=== PATIENT | male | born 1945 | race African-American/Black ===

== ENCOUNTER 2022-12-15 15:57 | Emergency (ER) | payer OTHER ==
[~2022-12-15] VITALS: Ht 188 cm; Wt 77.2 kg
[2022-12-15] MEDS ORDERED: ACETAMINOPHEN 325 MG TAB PO ONE (17:00)
[2022-12-15 18:17] LABS: Basophils # (auto) 0 10 ^3/uL (0-0.2); Basophils % (auto) 0.4 % (0.0-2.0); Eosinophils # (auto) 0.2 10 ^3/uL (0-0.8); Eosinophils % (auto) 2.4 % (0.0-7.0); Hematocrit 39.3 % (41.0-53.0); Hemoglobin 13.3 g/dL (13.5-17.5); Lymphocytes # (auto) 1.7 10 ^3/uL (0.4-5.4); Mean Corpuscular Hemoglobin 29.9 pg (28.0-32.0); Mean Corpuscular Hgb Conc. 33.7 g/dL (32.0-36.0); Mean Corpuscular Volume 88.8 fL (80.0-100.0); Monocytes # (auto) 0.6 10 ^3/uL (0-1.3); Monocytes % (auto) 7.6 % (0.0-12.0); Neutrophils # (auto) 5.5 10 ^3/uL (1.6-8.6); Neutrophils % (auto) 68.6 % (37.0-80.0); Nucleated Red Blood Cells % 0.2 %; Red Blood Cells 4.43 10^6/uL (4.5-5.90); Red Cell Distribution Width 13.3 % (11.8-14.3)
[2022-12-15 18:31] LABS: INR 1.03 (0.9-1.15); Partial Thromboplastin Time 29.6 sec (24.6-33.4)
[2022-12-15 18:45] LABS: Albumin 3.7 g/dL (3.4-5.0); Anion Gap 7 (5-15); BUN/Creatinine Ratio 7.8 (10.0-20.0); Blood Alcohol < 3.0 mg/dL (0-5); Blood Urea Nitrogen 7 mg/dL (7-18); Calcium 8.1 mg/dL (8.5-10.1); Carbon Dioxide 30 mmol/L (21-32); Chloride 101 mmol/L (98-107); GFR African American 105 mL/min; GFR Non-African American 87 mL/min; Glucose 93 mg/dL (74-106); Magnesium 2.2 mg/dL (1.6-2.6); Potassium 4.2 mmol/L (3.5-5.1); Sodium 138 mmol/L (136-145)
[2022-12-15 18:48] LABS: Alanine Aminotransferase 10 U/L (16-61); Alkaline Phosphatase 68 U/L (45-117); Aspartate Aminotransferase 13 U/L (15-37); Bilirubin, Total 0.4 mg/dL (0.2-1.0); Total Protein 7.3 g/dL (6.4-8.2)
[2022-12-15 19:20] VITALS: BP 139/62
== END 2022-12-15 20:14 | disposition short-term general hospital (02) ==
LOC: ER 15:57 → EDBD 15:57 → ER 20:14
DX: G93.41 Metabolic encephalopathy (principal); I60.9 Nontraumatic subarachnoid hemorrhage, unspecified; R41.82 Altered mental status, unspecified; Z98.890 Other specified postprocedural states; Z88.6 Allergy status to analgesic agent
CPT/HCPCS: 36415; 70450; 71045; 80053; 80320; 83605; 83735; 84484; 85025; 85610; 85730; 99291